=== PATIENT | female | born 1990 | race Caucasian/White ===

== ENCOUNTER 2019-07-29 16:34 | Inpatient (IN) | payer MEDICAID ==
[2019-07-29] MEDS ORDERED: Sodium Chloride 0.9% 10 ML Syringe FLUSH PRN ×2 (16:48→17:38)
[2019-07-29] MEDS ORDERED: cefOXitin 2 GM in Sodium Chloride 0.9% 50 ML IV ONE (17:38)
[2019-07-29] MEDS ORDERED: Lanolin 100% Cream 40 GM Tube TOP PRN (18:01)
[2019-07-29] MEDS ORDERED: Benzocaine 20% Top Spray 56 GM Bottle TOP PRN (18:01)
[2019-07-29] MEDS ORDERED: Ibuprofen 200 MG Tab, 24 Tab Bulk Bottle PO PRN (18:01)
[2019-07-29] MEDS ORDERED: Acetaminophen 325 MG Tab, 50 Tab Bulk Bottle PO PRN (18:01)
[2019-07-29] MEDS ORDERED: Witch Hazel Medicated Pads 100/Jar TOP ONE (18:01)
[2019-07-29] MEDS ORDERED: Witch Hazel Medicated Pads 100/Jar TOP PRN (18:01)
[2019-07-29] MEDS ORDERED: Benzocaine 20% Top Spray 56 GM Bottle TOP ONE (18:01)
--- NOTE | 2019-07-29 18:18 | PCM.LDHP ---
L&D History of Present Illness - General Admit Problem/Dx: Patient Status Order with Admit Dx/Problem 07/29/19 16:48 Patient Status [ADT] Routine 07/29/19 18:01 Patient Status [ADT] Routine Admission Diagnosis/Problem Admission Diagnosis/Problem Vaginal delivery - Related Data Allergies/Adverse Reactions: Allergies Allergy/AdvReac Type Severity Reaction Status Date / Time No Known Allergies Allergy Verified 10/07/13 05:37 Past Medical History HEENT History: Reports: None Cardiovascular History: Reports: None Respiratory History: Reports: None Gastrointestinal History: Reports: None Genitourinary History: Reports: None [employer] COOK History: Reports: None Musculoskeletal History: Reports: None Neurological History: Reports: None Psychiatric History: Reports: None Endocrine/Metabolic History: Reports: None Hematologic History: Reports: Anemia Immunologic History: Reports: None Oncologic (Cancer) History: Reports: None Dermatologic History: Reports: None - Infectious Disease History Infectious Disease History: Reports: None - Past Surgical History Head Surgeries/Procedures: Reports: None HEENT Surgical History: Reports: None Cardiovascular Surgical History: Reports: None Respiratory Surgical History: Reports: None GI Surgical History: Reports: None Female Surgical History: Reports: None Endocrine Surgical History: Reports: None Neurological Surgical History: Reports: None Musculoskeletal Surgical History: Reports: None Oncologic Surgical History: Reports: None Dermatological Surgical History: Reports: None Social & Family History - Tobacco Use Smoking Status *Q: Current Every Day Smoker Years of Tobacco use: 10 Packs/Tins Daily: 0.5 - Caffeine Use Caffeine Use: Reports: Coffee, Soda, Tea - Recreational Drug Use Recreational Drug Use: No L&D Exam - Vital Signs Weight: 58.967 kg - Patient Data Lab Results Last 24 hrs: Laboratory Results - last 24 hr 07/29/19 Range/Units 16:48 WBC 22.3 H (4.5-11.0) K/uL RBC 3.68 (3.30-5.50) M/uL Hgb 10.7 L D (12.0-15.0) g/dL Hct 32.2 L (36.0-48.0) % MCV 88 (80-98) fL MCH 29 (27-31) pg MCHC 33 (32-36) % Plt Count 258 (150-400) K/uL Neut % (Auto) 89 H (36-66) % Lymph % (Auto) 6 L (24-44) % [place] % (Auto) 5 (2-6) % Eos % (Auto) 0 L (2-4) % Baso % (Auto) 0 (0-1) % Result Diagrams: 07/29/19 16:48 Orders Last 24hrs: Active Orders 24 hr Category Date Time Status Patient Status [ADT] Routine ADT 07/29/19 16:48 Active Patient Status [ADT] Routine ADT 07/29/19 18:01 Active Heart Tones [RC] PER UNIT ROUTINE Care 07/29/19 16:48 Active Notify Provider Vital Signs [RC] PRN Care 07/29/19 16:48 Active Notify Provider [RC] PRN Care 07/29/19 16:48 Active VTE/DVT Education [RC] Click to Edit Care 07/29/19 18:02 Active Vital Signs [RC] PER UNIT ROUTINE Care 07/29/19 16:48 Active Vital Signs [RC] PFP Care 07/29/19 18:01 Active CBC WITH AUTO DIFF [HEME] Routine Lab 07/30/19 06:00 Ordered DRUG SCREEN, URINE [URCHEM] Urgent Lab 07/29/19 16:48 Ordered UA W/MICROSCOPIC [URIN] Urgent Lab 07/29/19 16:48 Ordered Acetaminophen [Tylenol Bulk Bottle] Med 07/29/19 18:01 Active See Dose Instructions PO Q4H PRN Benzocaine [Htlr-V-Nswwfhx 20% [place]] Med 07/29/19 18:01 Active 0 gm TOP Q4H PRN Ibuprofen [Motrin Bulk Bottle] Med 07/29/19 18:01 Active 600 mg PO Q6H PRN Lanolin [Lansinoh HPA] Med 07/29/19 18:01 Active 0 gm TOP ASDIRECTED PRN Oxytocin/Normal Saline [Pitocin in NS 20 Units/1,000 ML Med 07/29/19 18:06 Active ] 20 unit in 1,000 ml IV ONETIME Sodium Chloride 0.9% [Saline Flush] Med 07/29/19 16:48 Active 10 ml FLUSH ASDIRECTED PRN Sodium Chloride 0.9% [Saline Flush] Med 07/29/19 17:38 Active 10 ml FLUSH ASDIRECTED PRN Witch Zabrina [Tucks] Med 07/29/19 18:01 Active 1 pad TOP ASDIRECTED PRN Assess Lochia [WOMSER] Per Unit Routine Oth 07/29/19 18:01 Ordered Assess Uterine Involution [WOMSER] Per Unit Routine Ot 07/29/19 18:01 Ordered DVT/VTE Prophylaxis Reflex [OM.PC] Routine Ot 07/29/19 18:01 Ordered Ice Therapy [OM.PC] Per Unit Routine Ot 07/29/19 18:02 Ordered Perineal Care [OM.PC] Per Unit Routine Ot 07/29/19 18:02 Ordered Saline Lock Insert [OM.PC] Routine Ot 07/29/19 16:48 Ordered Saline Lock Insert [OM.PC] Routine Ot 07/29/19 17:38 Ordered Sitz Bath [OM.PC] Per Unit Routine Ot 07/29/19 18:02 Ordered Resuscitation Status Routine Resus Stat 07/29/19 16:48 Ordered Medication Orders Acetaminophen (Tylenol Bulk Bottle) 0 mg PO Q4H PRN PRN Reason: Pain Benzocaine (Rpge-K-Jgozvbc 20% [place]) 0 gm TOP Q4H PRN PRN Reason: Pain Emollient Ointment (Lansinoh Hpa) 0 gm TOP ASDIRECTED PRN PRN Reason: Pain Oxytocin/Sodium Chloride (Pitocin In Ns 20 Units/1,000 Ml) 20 unit in 1,000 mls @ 2,997 mls/hr IV ONETIME ONE; Protocol Stop: 07/29/19 18:26 Ibuprofen (Motrin Bulk Bottle) 600 mg PO Q6H PRN PRN Reason: Pain Sodium Chloride (Saline Flush) 10 ml FLUSH ASDIRECTED PRN PRN Reason: Keep Vein Open Sodium Chloride (Saline Flush) 10 ml FLUSH ASDIRECTED PRN PRN Reason: Keep Vein Open Witch Zabrina (Tucks) 1 pad TOP ASDIRECTED PRN PRN Reason: Pain
--- NOTE | 2019-07-29 18:45 | PCM.LDHP ---
L&D History of Present Illness - General Date of Service: 07/29/19 Admit Problem/Dx: Patient Status Order with Admit Dx/Problem 07/29/19 16:48 Patient Status [ADT] Routine 07/29/19 18:01 Patient Status [ADT] Routine Admission Diagnosis/Problem Admission Diagnosis/Problem Vaginal delivery - Related Data Allergies/Adverse Reactions: Allergies Allergy/AdvReac Type Severity Reaction Status Date / Time No Known Allergies Allergy Verified 10/07/13 05:37 Past Medical History HEENT History: Reports: None Cardiovascular History: Reports: None Respiratory History: Reports: None Gastrointestinal History: Reports: None Genitourinary History: Reports: None 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 Musculoskeletal History: Reports: None Neurological History: Reports: None Psychiatric History: Reports: None Endocrine/Metabolic History: Reports: None Hematologic History: Reports: Anemia Immunologic History: Reports: None Oncologic (Cancer) History: Reports: None Dermatologic History: Reports: None - Infectious Disease History Infectious Disease History: Reports: None - Past Surgical History Head Surgeries/Procedures: Reports: None HEENT Surgical History: Reports: None Cardiovascular Surgical History: Reports: None Respiratory Surgical History: Reports: None GI Surgical History: Reports: None Female Surgical History: Reports: None Endocrine Surgical History: Reports: None Neurological Surgical History: Reports: None Musculoskeletal Surgical History: Reports: None Oncologic Surgical History: Reports: None Dermatological Surgical History: Reports: None Social & Family History - Tobacco Use Smoking Status *Q: Current Every Day Smoker Years of Tobacco use: 10 Packs/Tins Daily: 0.5 - Caffeine Use Caffeine Use: Reports: Coffee, Soda, Tea - Recreational Drug Use Recreational Drug Use: No H&P Review of Systems - Review of Systems: Review Of Systems: See Below General: Reports: No Symptoms HEENT: Reports: No Symptoms Pulmonary: Reports: No Symptoms Cardiovascular: Reports: No Symptoms Gastrointestinal: Reports: No Symptoms Genitourinary: Reports: No Symptoms Musculoskeletal: Reports: No Symptoms Skin: Reports: No Symptoms Psychiatric: Reports: No Symptoms Neurological: Reports: No Symptoms Hematologic/Lymphatic: Reports: No Symptoms Immunologic: Reports: No Symptoms L&D Exam - Exam Exam: See Below - Vital Signs Weight: 58.967 kg - Exam General: Alert, Oriented HEENT: PERRLA, Conjunctiva Clear, EACs Clear, EOMI, Hearing Intact, Mucosa Moist & [place], Nares Patent, Normal Nasal Septum, Posterior Pharynx Clear, TMs Clear Neck: Supple, Trachea Midline Lungs: Clear to Auscultation, Normal Respiratory Effort Cardiovascular: Regular Rate, Regular Rhythm GI/Abdominal Exam: Normal Bowel Sounds, Soft, Non-Tender, No Organomegaly, No Distention, No Abnormal Bruit, No Mass, Pelvis Stable Rectal Exam: Normal Exam, Normal Rectal Tone Genitourinary: Normal external exam, Normal bimanual exam, Normal speculum exam Back Exam: Normal Inspection, Full Range of Motion Extremities: Normal Inspection, Normal Range of Motion, Non-Tender, No Pedal Edema, Normal Capillary Refill Skin: Warm, Dry, Intact Neurological: Cranial Nerves Intact, Reflexes Equal Bilateral Psychiatric: Alert, Normal Affect, Normal Mood - Patient Data Lab Results Last 24 hrs: Laboratory Results - last 24 hr 07/29/19 Range/Units 16:48 WBC 22.3 H (4.5-11.0) K/uL RBC 3.68 (3.30-5.50) M/uL Hgb 10.7 L D (12.0-15.0) g/dL Hct 32.2 L (36.0-48.0) % MCV 88 (80-98) fL MCH 29 (27-31) pg MCHC 33 (32-36) % Plt Count 258 (150-400) K/uL Neut % (Auto) 89 H (36-66) % Lymph % (Auto) 6 L (24-44) % [place] % (Auto) 5 (2-6) % Eos % (Auto) 0 L (2-4) % Baso % (Auto) 0 (0-1) % Result Diagrams: 07/29/19 16:48 - Problem List (1) Vaginal delivery SNOMED Code(s): 511039668 ICD Code: O80 - ENCOUNTER FOR FULL-TERM UNCOMPLICATED DELIVERY Status: Acute Current Visit: Yes (2) Precipitous delivery SNOMED Code(s): 686380160, 702797793 ICD Code: O62.3 - PRECIPITATE LABOR Status: Acute Current Visit: Yes (3) Encounter for care after unplanned out of hospital delivery SNOMED Code(s): 124066907, 925254916, 484651849 ICD Code: Z39.2 - ENCOUNTER FOR ROUTINE FOLLOW-UP Status: Acute Current Visit: Yes (4) Elevated WBC count SNOMED Code(s): 568200019, 986425257 ICD Code: D72.829 - ELEVATED WHITE BLOOD CELL COUNT, UNSPECIFIED Status: Acute Current Visit: Yes (5) No care in current SNOMED Code(s): 736080074 ICD Code: O09.30 - SUPRVSN OF PREG W INSUFFICIENT ANTENAT CARE, UNSP TRIMESTER Status: Acute Current Visit: Yes (6) Social problem in school SNOMED Code(s): 126415858 ICD Code: Z65.8 - OTH PROBLEMS RELATED TO PSYCHOSOCIAL CIRCUMSTANCES Status : Acute Current Visit: Yes (7) Anemia SNOMED Code(s): 957122648 ICD Code: D64.9 - ANEMIA, UNSPECIFIED Status: Acute Current Visit: Yes Qualifiers: Anemia type: unspecified type Qualified Code(s): D64.9 - Anemia, unspecified Problem List Initiated/Reviewed/Updated: Yes Orders Last 24hrs: Active Orders 24 hr Category Date Time Status Patient Status [ADT] Routine ADT 07/29/19 16:48 Active Patient Status [ADT] Routine ADT 07/29/19 18:01 Active Heart Tones [RC] PER UNIT ROUTINE Care 07/29/19 16:48 Active Notify Provider Vital Signs [RC] PRN Care 07/29/19 16:48 Active Notify Provider [RC] PRN Care 07/29/19 16:48 Active VTE/DVT Education [RC] Click to Edit Care 07/29/19 18:02 Active Vital Signs [RC] PER UNIT ROUTINE Care 07/29/19 16:48 Active Vital Signs [RC] PFP Care 07/29/19 18:01 Active CBC WITH AUTO DIFF [HEME] Routine Lab 07/30/19 06:00 Ordered DRUG SCREEN, URINE [URCHEM] Urgent Lab 07/29/19 16:48 Ordered UA W/MICROSCOPIC [URIN] Urgent Lab 07/29/19 16:48 Ordered Acetaminophen [Tylenol Bulk Bottle] Med 07/29/19 18:01 Active See Dose Instructions PO Q4H PRN Benzocaine [Odxl-V-Eosmngw 20% [place]] Med 07/29/19 18:01 Active 0 gm TOP Q4H PRN Ibuprofen [Motrin Bulk Bottle] Med 07/29/19 18:01 Active 600 mg PO Q6H PRN Lanolin [Lansinoh HPA] Med 07/29/19 18:01 Active 0 gm TOP ASDIRECTED PRN Sodium Chloride 0.9% [Saline Flush] Med 07/29/19 16:48 Active 10 ml FLUSH ASDIRECTED PRN Sodium Chloride 0.9% [Saline Flush] Med 07/29/19 17:38 Active 10 ml FLUSH ASDIRECTED PRN Witch Zabrina [Tucks] Med 07/29/19 18:01 Active 1 pad TOP ASDIRECTED PRN Assess Lochia [WOMSER] Per Unit Routine Oth 07/29/19 18:01 Ordered Assess Uterine Involution [WOMSER] Per Unit Routine Oth 07/29/19 18:01 Ordered DVT/VTE Prophylaxis Reflex [OM.PC] Routine Ot 07/29/19 18:01 Ordered Ice Therapy [OM.PC] Per Unit Routine Ot 07/29/19 18:02 Ordered Perineal Care [OM.PC] Per Unit Routine Ot 07/29/19 18:02 Ordered Saline Lock Insert [OM.PC] Routine Ot 07/29/19 16:48 Ordered Saline Lock Insert [OM.PC] Routine Ot 07/29/19 17:38 Ordered Sitz Bath [OM.PC] Per Unit Routine Ot 07/29/19 18:02 Ordered Resuscitation Status Routine Resus Stat 07/29/19 16:48 Ordered Medication Orders Acetaminophen (Tylenol Bulk Bottle) 0 mg PO Q4H PRN PRN Reason: Pain Benzocaine (Rpfy-K-Xcnmyaw 20% [place]) 0 gm TOP Q4H PRN PRN Reason: Pain Emollient Ointment (Lansinoh Hpa) 0 gm TOP ASDIRECTED PRN PRN Reason: Pain Ibuprofen (Motrin Bulk Bottle) 600 mg PO Q6H PRN PRN Reason: Pain Sodium Chloride (Saline Flush) 10 ml FLUSH ASDIRECTED PRN PRN Reason: Keep Vein Open Sodium Chloride (Saline Flush) 10 ml FLUSH ASDIRECTED PRN PRN Reason: Keep Vein Open Witch Zabrina (Tucks) 1 pad TOP ASDIRECTED PRN PRN Reason: Pain Assessment/Plan Comment:: 07/29/2019 28 yo female G2 now P2 delivered at home see labor delivery note-
--- NOTE | 2019-07-29 18:53 | PCM.DEL ---
L & D Note - General Info Date of Service: 07/29/19 Mother's Due Date: 08/03/19 (based on LMP) - Delivery Note Labor: Spontaneous Delivery Method: Spontaneous Vaginal Delivery-Single (delivered at home) Presentation: Vertex Nuchal Cord: None (patient states none) Amniotic Fluid Description: states no fluid seen Laceration: Labial (small not repaired, not bleeding) Placenta: Intact, Spontaneous Cord: 3 Vessels Estimated Blood Loss: 500 (based on what is in bag and pad) Resuscitation Needed: No : [place] Used (mom covered with a towel right away) Second Stage Interventions: Reports: Other (see below) (patient delivered at home ) Delivery Comments (Free Text/Narrative):: 07/29/2019 28 yo delivered a viable female infant at approximated 39 2/7 per LMP of patent precipitously in vertex position at home. Patient states her contractions started mildly at 1530 and by 1545 she had delivered baby on her own while sitting on the toilet in her bathroom, she states there was no fluid with baby, baby was pink in color, and baby cried immediately upon delivery. She states she lifted baby up and patients mother than called 911 and the louver mortiser operator on 911 told them to tie the cord, which they did with a piece of yarn. Then mother states she wrapped baby in a towel and waited for ambulance crew to arrive, Once they arrived she states that her placenta then fell out with some bleeding but that this is all on pad and was a lot in toilet. She states then the ambulance worker cut the cord and clamped it. She was then transported to the hospital. Placenta was intact in bag with three vessel cord, with small amount of clots, and moderate bleeding on pad noted. She had a small left labial tear, not bleeding, not repaired. No other lacerations noted of vagina, rectum, or cervix. [id number] based on amount on chux, amount in baggy, and amount on towel. Estimated Patient states on admission that she had been receiving care in [place]. After admission completed, [facility] called and states they have no records of patient, EPIC checked and no record of care, when asked patient again she revealed that she has gotten no care during this . currently skin to skin with mother of in labor and delivery room. - General Info Date of Service: 07/29/19 Functional Status: Reports: Pain Controlled - Review of Systems General: Reports: No Symptoms HEENT: Reports: No Symptoms Pulmonary: Reports: No Symptoms Cardiovascular: Reports: No Symptoms Gastrointestinal: Reports: No Symptoms Genitourinary: Reports: No Symptoms Musculoskeletal: Reports: No Symptoms Skin: Reports: No Symptoms Neurological: Reports: No Symptoms Psychiatric: Reports: No Symptoms - Patient Data Weight - Most Recent: 58.967 kg Lab Results Last 24 Hours: Laboratory Results - last 24 hr 07/29/19 Range/Units 16:48 WBC 22.3 H (4.5-11.0) K/uL RBC 3.68 (3.30-5.50) M/uL Hgb 10.7 L D (12.0-15.0) g/dL Hct 32.2 L (36.0-48.0) % MCV 88 (80-98) fL MCH 29 (27-31) pg MCHC 33 (32-36) % Plt Count 258 (150-400) K/uL Neut % (Auto) 89 H (36-66) % Lymph % (Auto) 6 L (24-44) % [place] % (Auto) 5 (2-6) % Eos % (Auto) 0 L (2-4) % Baso % (Auto) 0 (0-1) % Med Orders - Current: Current Medications Acetaminophen (Tylenol Bulk Bottle) 0 mg PO Q4H PRN PRN Reason: Pain Benzocaine (Xzgx-C-Lhukehs 20% [place]) 0 gm TOP Q4H PRN PRN Reason: Pain Emollient Ointment (Lansinoh Hpa) 0 gm TOP ASDIRECTED PRN PRN Reason: Pain Ibuprofen (Motrin Bulk Bottle) 600 mg PO Q6H PRN PRN Reason: Pain Sodium Chloride (Saline Flush) 10 ml FLUSH ASDIRECTED PRN PRN Reason: Keep Vein Open Sodium Chloride (Saline Flush) 10 ml FLUSH ASDIRECTED PRN PRN Reason: Keep Vein Open Witch Zabrina (Tucks) 1 pad TOP ASDIRECTED PRN PRN Reason: Pain Discontinued Medications Benzocaine (Sbcs-E-Xidvnaf 20% [place]) 0 gm TOP ONETIME ONE Stop: 07/29/19 18:02 Cefoxitin Sodium 2 gm/ Sodium (Chloride) 50 mls @ 100 mls/hr IV ONETIME ONE Stop: 07/29/19 18:07 Last Admin: 07/29/19 18:33 Dose: 100 mls/hr Oxytocin/Sodium Chloride (Pitocin In Ns 20 Units/1,000 Ml) 20 unit in 1,000 mls @ 2,997 mls/hr IV ONETIME ONE; Protocol Stop: 07/29/19 18:26 Dre Greber (Steve) 1 pad TOP ONETIME ONE Stop: 07/29/19 18:02 - Exam General: Alert, Oriented, Cooperative HEENT: Pupils Equal, Pupils Reactive, EOMI, Mucous Membr. Moist/[place] Neck: Supple Lungs: Clear to Auscultation, Normal Respiratory Effort Cardiovascular: Regular Rate, Regular Rhythm GI/Abdominal Exam: Normal Bowel Sounds, Soft, Non-Tender, No Organomegaly, No Distention, No Abnormal Bruit, No Mass, Pelvis Stable (Female) Exam: Normal External Exam, Normal Speculum Exam, Normal Bimanual Exam, Enlarged Uterus, Vaginal Bleeding, Vaginal Tears (small right labial, no bleeding and not repaired) Back Exam: Normal Inspection, Full Range of Motion Extremities: Normal Inspection, Normal Range of Motion, Non-Tender, No Pedal Edema, Normal Capillary Refill Skin: Warm, Dry, Intact Neurological: No New Focal Deficit Psy/Mental Status: Alert, Normal Affect, Normal Mood - Problem List & Annotations (1) Vaginal delivery SNOMED Code(s): 906130613 Code(s): O80 - ENCOUNTER FOR FULL-TERM UNCOMPLICATED DELIVERY Status: Acute Current Visit: Yes (2) Precipitous delivery SNOMED Code(s): 869627736, 493950935 Code(s): O62.3 - PRECIPITATE LABOR Status: Acute Current Visit: Yes (3) Encounter for care after unplanned out of hospital delivery SNOMED Code(s): 728876404, 301494941, 729120261 Code(s): Z39.2 - ENCOUNTER FOR ROUTINE FOLLOW-UP Status: Acute Current Visit: Yes (4) Elevated WBC count SNOMED Code(s): 560566047, 882657507 Code(s): D72.829 - ELEVATED WHITE BLOOD CELL COUNT, UNSPECIFIED Status: Acute Current Visit: Yes (5) No care in current SNOMED Code(s): 068245408 Code(s): O09.30 - SUPRVSN OF PREG W INSUFFICIENT ANTENAT CARE, UNSP TRIMESTER Status: Acute Current Visit: Yes (6) Social problem in school SNOMED Code(s): 688191036 Code(s): Z65.8 - OTH PROBLEMS RELATED TO PSYCHOSOCIAL CIRCUMSTANCES Status : Acute Current Visit: Yes (7) Anemia SNOMED Code(s): 100727567 Code(s): D64.9 - ANEMIA, UNSPECIFIED Status: Acute Current Visit: Yes Qualifiers: Anemia type: unspecified type Qualified Code(s): D64.9 - Anemia, unspecified (8) Prolonged rupture of membranes, greater than 24 hours, delivered SNOMED Code(s): 22222322, 695594275 Code(s): O42.10 - JONA ROM, ONSET LABOR > 24 HR FOL RUPT, UNSP WEEKS OF GEST Status: Acute Current Visit: Yes - Problem List Review Problem List Initiated/Reviewed/Updated: Yes - My Orders Last 24 Hours: My Active Orders 07/29/19 16:48 Patient Status [ADT] Routine Heart Tones [RC] PER UNIT ROUTINE Notify Provider Vital Signs [RC] PRN Notify Provider [RC] PRN Vital Signs [RC] PER UNIT ROUTINE DRUG SCREEN, URINE [URCHEM] Urgent UA W/MICROSCOPIC [URIN] Urgent Sodium Chloride 0.9% [Saline Flush] 10 ml FLUSH ASDIRECTED PRN Saline Lock Insert [OM.PC] Routine Resuscitation Status Routine 07/29/19 17:38 Sodium Chloride 0.9% [Saline Flush] 10 ml FLUSH ASDIRECTED PRN Saline Lock Insert [OM.PC] Routine 07/29/19 18:01 Patient Status [ADT] Routine Vital Signs [RC] PFP Acetaminophen [Tylenol Bulk Bottle] See Dose Instructions PO Q4H PRN Benzocaine [Roqr-Z-Xmpjqkq 20% [place]] 0 gm TOP Q4H PRN Ibuprofen [Motrin Bulk Bottle] 600 mg PO Q6H PRN Lanolin [Lansinoh HPA] 0 gm TOP ASDIRECTED PRN Witch Zabrina [Tucks] 1 pad TOP ASDIRECTED PRN Assess Lochia [WOMSER] Per Unit Routine Assess Uterine Involution [WOMSER] Per Unit Routine DVT/VTE Prophylaxis Reflex [OM.PC] Routine 07/29/19 18:02 VTE/DVT Education [RC] Click to Edit Ice Therapy [OM.PC] Per Unit Routine Perineal Care [OM.PC] Per Unit Routine Sitz Bath [OM.PC] Per Unit Routine 07/30/19 06:00 CBC WITH AUTO DIFF [HEME] Routine - Assessment Assessment:: 07/29/2019 28 yo G2 now P2 delivered precipitously at home in bathroom with no care Approximate gestation of 39 2/7 based on patient stated LMP Prolonged or unknown rupture of membranes Social problems Labs-unknown, CBC-wbc-22.3, hgb-10.7 - Plan Plan:: 07/29/2019 28 yo female G2 now P2 delivered at home see labor delivery note- Plan- Routine cares Encourage and support Will draw all labs IV antibiotics for suspected prolonged SROM and elevated WBC CBC again tomorrow am Pitocin IV per protocol for bleeding
--- NOTE | 2019-07-30 08:34 | PCM.PNPP ---
- General Info Date of Service: 07/30/19 Functional Status: Reports: Pain Controlled - Review of Systems General: Reports: No Symptoms HEENT: Reports: No Symptoms Pulmonary: Reports: No Symptoms Cardiovascular: Reports: No Symptoms Gastrointestinal: Reports: No Symptoms Genitourinary: Reports: No Symptoms Musculoskeletal: Reports: No Symptoms Skin: Reports: No Symptoms Neurological: Reports: No Symptoms Psychiatric: Reports: No Symptoms - General Info Date of Service: 07/30/19 - Patient Data Vital Signs - Most Recent: Last Vital Signs Temp 35.7 C 07/30/19 07:03 Pulse 86 07/30/19 07:03 Resp 16 07/30/19 07:03 BP 116/73 07/30/19 07:03 Pulse Ox 98 07/30/19 07:03 Weight - Most Recent: 58.967 kg I&O - Last 24 Hours: Intake & Output 07/29/19 07/30/19 07/30/19 22:59 06:59 14:59 Intake Total 800 800 Balance 800 800 Lab Results - Last 24 Hours: Laboratory Results - last 24 hr 07/29/19 07/29/19 07/29/19 Range/Units 16:48 16:48 16:48 WBC 22.3 H (4.5-11.0) K/uL RBC 3.68 (3.30-5.50) M/uL Hgb 10.7 L D (12.0-15.0) g/dL Hct 32.2 L (36.0-48.0) % MCV 88 (80-98) fL MCH 29 (27-31) pg MCHC 33 (32-36) % Plt Count 258 (150-400) K/uL Neut % (Auto) 89 H (36-66) % Lymph % (Auto) 6 L (24-44) % [place] % (Auto) 5 (2-6) % Eos % (Auto) 0 L (2-4) % Baso % (Auto) 0 (0-1) % Urine Color Brown A (YELLOW) Urine Appearance Cloudy A (CLEAR) Urine pH 6.0 (5.0-8.0) Ur Specific [place] 1.015 (1.008-1.030) Urine Protein 100 H (NEGATIVE) mg/dL Urine Glucose (UA) Negative (NEGATIVE) mg/dL Urine Ketones Negative (NEGATIVE) mg/dL Urine Occult Blood Large H (NEGATIVE) Urine Nitrite Positive H (NEGATIVE) Urine Bilirubin Negative (NEGATIVE) Urine Urobilinogen 0.2 (0.2-1.0) EU/dL Ur Leukocyte Esterase Large H (NEGATIVE) Urine RBC Packed H (0-5) Urine WBC Packed H (0-5) Ur Epithelial Cells Few Amorphous Sediment Not seen Urine Bacteria Moderate Urine Mucus Not seen Urine Opiates Screen Negative (NEGATIVE) Ur Oxycodone Screen Negative (NEGATIVE) Urine Methadone Screen Negative (NEGATIVE) Ur Propoxyphene Screen Negative (NEGATIVE) Ur Barbiturates Screen Negative (NEGATIVE) Ur Tricyclics Screen Negative (NEGATIVE) Ur Phencyclidine Scrn Negative (NEGATIVE) Ur Amphetamine Screen Presumptive positive H (NEGATIVE) U Methamphetamines Scrn Presumptive positive H (NEGATIVE) Urine MDMA Screen Negative (NEGATIVE) U Benzodiazepines Scrn Negative (NEGATIVE) U Cocaine Metab Screen Negative (NEGATIVE) U Marijuana (THC) Screen Negative (NEGATIVE) HIV-1 Ab Rapid Screen (NON-REACT.) Blood Type Gel Antibody Screen 07/29/19 07/29/19 07/30/19 Range/Units 19:39 19:39 05:00 WBC 13.4 H (4.5-11.0) K/uL RBC 2.67 L (3.30-5.50) M/uL Hgb 7.5 L D (12.0-15.0) g/dL Hct 23.4 L (36.0-48.0) % MCV 88 (80-98) fL MCH 28 (27-31) pg MCHC 32 (32-36) % Plt Count 206 (150-400) K/uL Neut % (Auto) 71 H (36-66) % Lymph % (Auto) 21 L (24-44) % [place] % (Auto) 7 H (2-6) % Eos % (Auto) 2 (2-4) % Baso % (Auto) 0 (0-1) % Urine Color (YELLOW) Urine Appearance (CLEAR) Urine pH (5.0-8.0) Ur Specific [place] (1.008-1.030) Urine Protein (NEGATIVE) mg/dL Urine Glucose (UA) (NEGATIVE) mg/dL Urine Ketones (NEGATIVE) mg/dL Urine Occult Blood (NEGATIVE) Urine Nitrite (NEGATIVE) Urine Bilirubin (NEGATIVE) Urine Urobilinogen (0.2-1.0) EU/dL Ur Leukocyte Esterase (NEGATIVE) Urine RBC (0-5) Urine WBC (0-5) Ur Epithelial Cells Amorphous Sediment Urine Bacteria Urine Mucus Urine Opiates Screen (NEGATIVE) Ur Oxycodone Screen (NEGATIVE) Urine Methadone Screen (NEGATIVE) Ur Propoxyphene Screen (NEGATIVE) Ur Barbiturates Screen (NEGATIVE) Ur Tricyclics Screen (NEGATIVE) Ur Phencyclidine Scrn (NEGATIVE) Ur Amphetamine Screen (NEGATIVE) U Methamphetamines Scrn (NEGATIVE) Urine MDMA Screen (NEGATIVE) U Benzodiazepines Scrn (NEGATIVE) U Cocaine Metab Screen (NEGATIVE) U Marijuana (THC) Screen (NEGATIVE) HIV-1 Ab Rapid Screen Non-reactive (NON-REACT.) Blood Type O POSITIVE Gel Antibody Screen Negative Med Orders - Current: Current Medications Acetaminophen (Tylenol Bulk Bottle) 0 mg PO Q4H PRN PRN Reason: Pain Last Admin: 07/29/19 19:09 Dose: 1 bottle Benzocaine (Rgyt-E-Zbjutnj 20% [place]) 0 gm TOP Q4H PRN PRN Reason: Pain Emollient Ointment (Lansinoh Hpa) 0 gm TOP ASDIRECTED PRN PRN Reason: Pain Ibuprofen (Motrin Bulk Bottle) 600 mg PO Q6H PRN PRN Reason: Pain Last Admin: 07/29/19 19:09 Dose: 1 bottle Sodium Chloride (Saline Flush) 10 ml FLUSH ASDIRECTED PRN PRN Reason: Keep Vein Open Last Admin: 07/29/19 21:56 Dose: 10 ml Witch Zarbina (Tucks) 1 pad TOP ASDIRECTED PRN PRN Reason: Pain Discontinued Medications Benzocaine (Jjub-L-Imnfgga 20% [place]) 0 gm TOP ONETIME ONE Stop: 07/29/19 18:02 Last Admin: 07/30/19 05:21 Dose: Not Given Cefoxitin Sodium 2 gm/ Sodium (Chloride) 50 mls @ 100 mls/hr IV ONETIME ONE Stop: 07/29/19 18:07 Last Admin: 07/29/19 18:33 Dose: 100 mls/hr Oxytocin/Sodium Chloride (Pitocin In Ns 20 Units/1,000 Ml) 20 unit in 1,000 mls @ 2,997 mls/hr IV ONETIME ONE; Protocol Stop: 07/29/19 18:26 Last Admin: 07/29/19 19:14 Dose: 999 munits/min, 2,997 mls/hr Dre Gerber (Steve) 1 pad TOP ONETIME ONE Stop: 07/29/19 18:02 Last Admin: 07/30/19 05:22 Dose: Not Given - Infant Interaction Disposition, : [place] at Bedside Interaction: Holding Infant Infant Feeding: Breastfed ; Nursed Well - Recovery Exam Fundal Tone: Firm Fundal Level: 2 Fingerbreadths Below Umbilicus Fundal Placement: Midline Lochia Amount: Scant, Small Lochia Color: Rubra/Red Perineum Description: Intact, Minimal Bruising/Swelling Episiotomy/Laceration: None Bladder Status: Voiding - Exam General: Alert, Oriented HEENT: Pupils Equal Neck: Supple Lungs: Clear to Auscultation, Normal Respiratory Effort Cardiovascular: Regular Rate, Regular Rhythm GI/Abdominal Exam: Normal Bowel Sounds, Soft, Non-Tender, No Organomegaly, No Distention, No Abnormal Bruit, No Mass, Pelvis Stable Extremities: Normal Inspection, Normal Range of Motion, Non-Tender, No Pedal Edema, Normal Capillary Refill Skin: Warm, Dry, Intact Neurological: No New Focal Deficit Psy/Mental Status: Alert, Normal Affect, Normal Mood - Problem List & Annotations (1) Vaginal delivery SNOMED Code(s): 183094184 Code(s): O80 - ENCOUNTER FOR FULL-TERM UNCOMPLICATED DELIVERY Status: Acute Current Visit: Yes (2) Precipitous delivery SNOMED Code(s): 507705454, 444079688 Code(s): O62.3 - PRECIPITATE LABOR Status: Acute Current Visit: Yes (3) Encounter for care after unplanned out of hospital delivery SNOMED Code(s): 340851398, 071259933, 851480334 Code(s): Z39.2 - ENCOUNTER FOR ROUTINE FOLLOW-UP Status: Acute Current Visit: Yes (4) Elevated WBC count SNOMED Code(s): 179247803, 429900473 Code(s): D72.829 - ELEVATED WHITE BLOOD CELL COUNT, UNSPECIFIED Status: Acute Current Visit: Yes (5) No care in current SNOMED Code(s): 392453734 Code(s): O09.30 - SUPRVSN OF PREG W INSUFFICIENT ANTENAT CARE, UNSP TRIMESTER Status: Acute Current Visit: Yes (6) Social problem in school SNOMED Code(s): 156987232 Code(s): Z65.8 - OTH PROBLEMS RELATED TO PSYCHOSOCIAL CIRCUMSTANCES Status : Acute Current Visit: Yes (7) Anemia SNOMED Code(s): 885043618 Code(s): D64.9 - ANEMIA, UNSPECIFIED Status: Acute Current Visit: Yes Qualifiers: Anemia type: unspecified type Qualified Code(s): D64.9 - Anemia, unspecified (8) Prolonged rupture of membranes, greater than 24 hours, delivered SNOMED Code(s): 70162682, 815166324 Code(s): O42.10 - JONA ROM, ONSET LABOR > 24 HR FOL RUPT, UNSP WEEKS OF GEST Status: Acute Current Visit: Yes (9) UTI (urinary tract infection) during SNOMED Code(s): 789347036 Code(s): O23.40 - UNSP INFECTION OF URINARY TRACT IN , UNSP TRIMESTER Status: Acute Current Visit: Yes - Problem List Review Problem List Initiated/Reviewed/Updated: Yes - My Orders Last 24 Hours: My Active Orders 07/29/19 16:48 Patient Status [ADT] Routine Notify Provider Vital Signs [RC] PRN Saline Lock Insert [OM.PC] Routine Resuscitation Status Routine 07/29/19 17:38 Sodium Chloride 0.9% [Saline Flush] 10 ml FLUSH ASDIRECTED PRN Saline Lock Insert [OM.PC] Routine 07/29/19 18:00 HEPATITIS B SURF AB QUANT Routine RUBELLA ANTIBODIES, IGG Routine 07/29/19 18:01 Patient Status [ADT] Routine Vital Signs [RC] PFP Acetaminophen [Tylenol Bulk Bottle] See Dose Instructions PO Q4H PRN Benzocaine [Lygr-A-Qmgrkzd 20% [place]] 0 gm TOP Q4H PRN Ibuprofen [Motrin Bulk Bottle] 600 mg PO Q6H PRN Lanolin [Lansinoh HPA] 0 gm TOP ASDIRECTED PRN Witch Zabrina [Tucks] 1 pad TOP ASDIRECTED PRN Assess Lochia [WOMSER] Per Unit Routine Assess Uterine Involution [WOMSER] Per Unit Routine DVT/VTE Prophylaxis Reflex [OM.PC] Routine 07/29/19 18:02 VTE/DVT Education [RC] Click to Edit Ice Therapy [OM.PC] Per Unit Routine Perineal Care [OM.PC] Per Unit Routine Sitz Bath [OM.PC] Per Unit Routine 07/29/19 22:29 AMPHETAMINE SCREEN RFLX Routine METHAMPHETAMINE D/L ISOMERS Routine 07/30/19 05:00 RPR QN+TP ABS Routine - Assessment Assessment:: 07/29/2019 28 yo G2 now P2 delivered precipitously at home in bathroom with no care Approximate gestation of 39 2/7 based on patient stated LMP Prolonged or unknown rupture of membranes Social problems Labs-unknown, CBC-wbc-22.3, hgb-10.7 07/30/2019 Normal Female Day One UDS positive for amphetamines and methamphetamines, patient denies drug use No care well Fundus firm and bleeding decreasing Hgb-7.5 today, WBC-13.8 today Patient currently being cooperative, social service to come later today. - Plan Plan:: 07/29/2019 28 yo female G2 now P2 delivered at home see labor delivery note- Plan- Routine cares Encourage and support Will draw all labs IV antibiotics for suspected prolonged SROM and elevated WBC CBC again tomorrow am Pitocin IV per protocol for bleeding 07/30/2019 Continue routine cares Continue to Encourage and support IV antibiotics for suspected prolonged SROM and elevated WBC, leave SL in for now CBC tomorrow again to check hgb Will initiate Iron today Will initiate oral antibiotics for suspected UTI Social service to see today
[2019-07-30] MEDS: Amoxicillin 500 MG Cap PO SCH ×2 (09:44→17:57)
--- NOTE | 2019-07-30 17:05 | PCM.PNPP ---
- General Info Date of Service: 07/30/19 - Patient Data Vital Signs - Most Recent: Last Vital Signs Temp 36.1 C 07/30/19 15:18 Pulse 98 07/30/19 15:18 Resp 16 07/30/19 15:18 BP 109/80 07/30/19 15:18 Pulse Ox 99 07/30/19 15:18 Weight - Most Recent: 58.967 kg I&O - Last 24 Hours: Intake & Output 07/30/19 07/30/19 07/30/19 06:59 14:59 22:59 Intake Total 800 940 Balance 800 940 Lab Results - Last 24 Hours: Laboratory Results - last 24 hr 07/29/19 07/29/19 07/29/19 Range/Units 16:48 16:48 16:48 WBC 22.3 H (4.5-11.0) K/uL RBC 3.68 (3.30-5.50) M/uL Hgb 10.7 L D (12.0-15.0) g/dL Hct 32.2 L (36.0-48.0) % MCV 88 (80-98) fL MCH 29 (27-31) pg MCHC 33 (32-36) % Plt Count 258 (150-400) K/uL Neut % (Auto) 89 H (36-66) % Lymph % (Auto) 6 L (24-44) % [place] % (Auto) 5 (2-6) % Eos % (Auto) 0 L (2-4) % Baso % (Auto) 0 (0-1) % Urine Color Brown A (YELLOW) Urine Appearance Cloudy A (CLEAR) Urine pH 6.0 (5.0-8.0) Ur Specific [place] 1.015 (1.008-1.030) Urine Protein 100 H (NEGATIVE) mg/dL Urine Glucose (UA) Negative (NEGATIVE) mg/dL Urine Ketones Negative (NEGATIVE) mg/dL Urine Occult Blood Large H (NEGATIVE) Urine Nitrite Positive H (NEGATIVE) Urine Bilirubin Negative (NEGATIVE) Urine Urobilinogen 0.2 (0.2-1.0) EU/dL Ur Leukocyte Esterase Large H (NEGATIVE) Urine RBC Packed H (0-5) Urine WBC Packed H (0-5) Ur Epithelial Cells Few Amorphous Sediment Not seen Urine Bacteria Moderate Urine Mucus Not seen Urine Opiates Screen Negative (NEGATIVE) Ur Oxycodone Screen Negative (NEGATIVE) Urine Methadone Screen Negative (NEGATIVE) Ur Propoxyphene Screen Negative (NEGATIVE) Ur Barbiturates Screen Negative (NEGATIVE) Ur Tricyclics Screen Negative (NEGATIVE) Ur Phencyclidine Scrn Negative (NEGATIVE) Ur Amphetamine Screen Presumptive positive H (NEGATIVE) U Methamphetamines Scrn Presumptive positive H (NEGATIVE) Urine MDMA Screen Negative (NEGATIVE) U Benzodiazepines Scrn Negative (NEGATIVE) U Cocaine Metab Screen Negative (NEGATIVE) U Marijuana (THC) Screen Negative (NEGATIVE) HIV-1 Ab Rapid Screen (NON-REACT.) Blood Type Gel Antibody Screen 07/29/19 07/29/19 07/30/19 Range/Units 19:39 19:39 05:00 WBC 13.4 H (4.5-11.0) K/uL RBC 2.67 L (3.30-5.50) M/uL Hgb 7.5 L D (12.0-15.0) g/dL Hct 23.4 L (36.0-48.0) % MCV 88 (80-98) fL MCH 28 (27-31) pg MCHC 32 (32-36) % Plt Count 206 (150-400) K/uL Neut % (Auto) 71 H (36-66) % Lymph % (Auto) 21 L (24-44) % [place] % (Auto) 7 H (2-6) % Eos % (Auto) 2 (2-4) % Baso % (Auto) 0 (0-1) % Urine Color (YELLOW) Urine Appearance (CLEAR) Urine pH (5.0-8.0) Ur Specific [place] (1.008-1.030) Urine Protein (NEGATIVE) mg/dL Urine Glucose (UA) (NEGATIVE) mg/dL Urine Ketones (NEGATIVE) mg/dL Urine Occult Blood (NEGATIVE) Urine Nitrite (NEGATIVE) Urine Bilirubin (NEGATIVE) Urine Urobilinogen (0.2-1.0) EU/dL Ur Leukocyte Esterase (NEGATIVE) Urine RBC (0-5) Urine WBC (0-5) Ur Epithelial Cells Amorphous Sediment Urine Bacteria Urine Mucus Urine Opiates Screen (NEGATIVE) Ur Oxycodone Screen (NEGATIVE) Urine Methadone Screen (NEGATIVE) Ur Propoxyphene Screen (NEGATIVE) Ur Barbiturates Screen (NEGATIVE) Ur Tricyclics Screen (NEGATIVE) Ur Phencyclidine Scrn (NEGATIVE) Ur Amphetamine Screen (NEGATIVE) U Methamphetamines Scrn (NEGATIVE) Urine MDMA Screen (NEGATIVE) U Benzodiazepines Scrn (NEGATIVE) U Cocaine Metab Screen (NEGATIVE) U Marijuana (THC) Screen (NEGATIVE) HIV-1 Ab Rapid Screen Non-reactive (NON-REACT.) Blood Type O POSITIVE Gel Antibody Screen Negative Med Orders - Current: Current Medications Acetaminophen (Tylenol Bulk Bottle) 0 mg PO Q4H PRN PRN Reason: Pain Last Admin: 07/29/19 19:09 Dose: 1 bottle Amoxicillin (Amoxil) 500 mg PO Q8H YOLETTE Stop: 08/09/19 09:01 Last Admin: 07/30/19 09:44 Dose: 500 mg Benzocaine (Omoi-A-Yfodagv 20% [place]) 0 gm TOP Q4H PRN PRN Reason: Pain Emollient Ointment (Lansinoh Hpa) 0 gm TOP ASDIRECTED PRN PRN Reason: Pain Ferrous Sulfate (Ferrous Sulfate) 325 mg PO BIDMEALS YOLETTE Ibuprofen (Motrin Bulk Bottle) 600 mg PO Q6H PRN PRN Reason: Pain Last Admin: 07/29/19 19:09 Dose: 1 bottle Sodium Chloride (Saline Flush) 10 ml FLUSH ASDIRECTED PRN PRN Reason: Keep Vein Open Last Admin: 07/29/19 21:56 Dose: 10 ml Witch Zabrina (Tucks) 1 pad TOP ASDIRECTED PRN PRN Reason: Pain Discontinued Medications Benzocaine (Bfdo-D-Emccoqf 20% [place]) 0 gm TOP ONETIME ONE Stop: 07/29/19 18:02 Last Admin: 07/30/19 05:21 Dose: Not Given Cefoxitin Sodium 2 gm/ Sodium (Chloride) 50 mls @ 100 mls/hr IV ONETIME ONE Stop: 07/29/19 18:07 Last Admin: 07/29/19 18:33 Dose: 100 mls/hr Oxytocin/Sodium Chloride (Pitocin In Ns 20 Units/1,000 Ml) 20 unit in 1,000 mls @ 2,997 mls/hr IV ONETIME ONE; Protocol Stop: 07/29/19 18:26 Last Admin: 07/29/19 19:14 Dose: 999 munits/min, 999 mls/hr Witch Zabrina (Tucks) 1 pad TOP ONETIME ONE Stop: 07/29/19 18:02 Last Admin: 07/30/19 05:22 Dose: Not Given - Infant Interaction Disposition, : [place] at Bedside Interaction: Holding Infant Feeding: Breastfed Infant; Nursed Well - Recovery Exam Fundal Tone: Firm Fundal Level: 2 Fingerbreadths Below Umbilicus Fundal Placement: Midline Lochia Amount: Small Lochia Color: Rubra/Red Perineum Description: Intact, Minimal Bruising/Swelling Episiotomy/Laceration: None Bladder Status: Voiding - Problem List & Annotations (1) Vaginal delivery SNOMED Code(s): 488817232 Code(s): O80 - ENCOUNTER FOR FULL-TERM UNCOMPLICATED DELIVERY Status: Acute Current Visit: Yes (2) Precipitous delivery SNOMED Code(s): 543942500, 429258521 Code(s): O62.3 - PRECIPITATE LABOR Status: Acute Current Visit: Yes (3) Encounter for care after unplanned out of hospital delivery SNOMED Code(s): 814599576, 136418586, 481932517 Code(s): Z39.2 - ENCOUNTER FOR ROUTINE FOLLOW-UP Status: Acute Current Visit: Yes (4) Elevated WBC count SNOMED Code(s): 801036390, 816212437 Code(s): D72.829 - ELEVATED WHITE BLOOD CELL COUNT, UNSPECIFIED Status: Acute Current Visit: Yes (5) No care in current SNOMED Code(s): 460843057 Code(s): O09.30 - SUPRVSN OF PREG W INSUFFICIENT ANTENAT CARE, UNSP TRIMESTER Status: Acute Current Visit: Yes (6) Social problem in school SNOMED Code(s): 236773920 Code(s): Z65.8 - OTH PROBLEMS RELATED TO PSYCHOSOCIAL CIRCUMSTANCES Status : Acute Current Visit: Yes (7) Anemia SNOMED Code(s): 023466471 Code(s): D64.9 - ANEMIA, UNSPECIFIED Status: Acute Current Visit: Yes Qualifiers: Anemia type: unspecified type Qualified Code(s): D64.9 - Anemia, unspecified (8) Prolonged rupture of membranes, greater than 24 hours, delivered SNOMED Code(s): 78297408, 512577304 Code(s): O42.10 - JONA ROM, ONSET LABOR > 24 HR FOL RUPT, UNSP WEEKS OF GEST Status: Acute Current Visit: Yes (9) UTI (urinary tract infection) during SNOMED Code(s): 405576652 Code(s): O23.40 - UNSP INFECTION OF URINARY TRACT IN , UNSP TRIMESTER Status: Acute Current Visit: Yes - Problem List Review Problem List Initiated/Reviewed/Updated: Yes - My Orders Last 24 Hours: My Active Orders 07/29/19 16:48 Patient Status [ADT] Routine Notify Provider Vital Signs [RC] PRN Resuscitation Status Routine 07/29/19 17:38 Sodium Chloride 0.9% [Saline Flush] 10 ml FLUSH ASDIRECTED PRN 07/29/19 18:00 HEPATITIS B SURF AB QUANT Routine RUBELLA ANTIBODIES, IGG Routine 07/29/19 18:01 Patient Status [ADT] Routine Vital Signs [RC] PFP Acetaminophen [Tylenol Bulk Bottle] See Dose Instructions PO Q4H PRN Benzocaine [Epze-J-Abdjvgl 20% [place]] 0 gm TOP Q4H PRN Ibuprofen [Motrin Bulk Bottle] 600 mg PO Q6H PRN Lanolin [Lansinoh HPA] 0 gm TOP ASDIRECTED PRN Witch Zabrina [Tucks] 1 pad TOP ASDIRECTED PRN Assess Lochia [WOMSER] Per Unit Routine Assess Uterine Involution [WOMSER] Per Unit Routine DVT/VTE Prophylaxis Reflex [OM.PC] Routine 07/29/19 18:02 VTE/DVT Education [RC] Click to Edit Ice Therapy [OM.PC] Per Unit Routine Perineal Care [OM.PC] Per Unit Routine Sitz Bath [OM.PC] Per Unit Routine 07/29/19 22:29 AMPHETAMINE SCREEN RFLX Routine METHAMPHETAMINE D/L ISOMERS Routine 07/30/19 05:00 RPR QN+TP ABS Routine 07/30/19 09:00 Amoxicillin [Amoxil] 500 mg PO Q8H 07/30/19 17:00 Ferrous Sulfate 325 mg PO BIDMEALS - Assessment Assessment:: 07/29/2019 28 yo G2 now P2 delivered precipitously at home in bathroom with no care Approximate gestation of 39 2/7 based on patient stated LMP Prolonged or unknown rupture of membranes Social problems Labs-unknown, CBC-wbc-22.3, hgb-10.7 07/30/2019 Normal Female Day One UDS positive for amphetamines and methamphetamines, patient denies drug use No care well Fundus firm and bleeding decreasing Hgb-7.5 today, WBC-13.8 today Patient currently being cooperative, social service to come later today. 07/30/2019 [facility] worker here for assessment After they left [facility] and placed baby on a police hold - Plan Plan:: 07/29/2019 28 yo female G2 now P2 delivered at home see labor delivery note- Plan- Routine cares Encourage and support Will draw all labs IV antibiotics for suspected prolonged SROM and elevated WBC CBC again tomorrow am Pitocin IV per protocol for bleeding 07/30/2019 Continue routine cares Continue to Encourage and support IV antibiotics for suspected prolonged SROM and elevated WBC, leave SL in for now CBC tomorrow again to check hgb Will initiate Iron today Will initiate oral antibiotics for suspected UTI Social service to see today
[2019-07-30] MEDS: Ferrous Sulfate 325 MG Tab PO SCH (17:57)
[2019-07-30] MEDS: Docusate Sodium 100 MG Cap PO PRN (21:16)
[2019-07-31] MEDS: Amoxicillin 500 MG Cap PO SCH ×2 (01:45→09:02)
--- NOTE | 2019-07-31 07:27 | PCM.PNPP ---
- General Info Date of Service: 07/31/19 Functional Status: Reports: Pain Controlled - Review of Systems General: Reports: No Symptoms HEENT: Reports: No Symptoms Pulmonary: Reports: No Symptoms Cardiovascular: Reports: No Symptoms Gastrointestinal: Reports: No Symptoms Genitourinary: Reports: No Symptoms Musculoskeletal: Reports: No Symptoms Skin: Reports: No Symptoms Neurological: Reports: No Symptoms Psychiatric: Reports: No Symptoms - General Info Date of Service: 07/31/19 - Patient Data Vital Signs - Most Recent: Last Vital Signs Temp 35.9 C 07/31/19 07:20 Pulse 86 07/31/19 07:20 Resp 18 07/31/19 07:20 BP 111/65 07/31/19 07:20 Pulse Ox 97 07/31/19 07:20 Weight - Most Recent: 58.967 kg I&O - Last 24 Hours: Intake & Output 07/30/19 07/31/19 07/31/19 22:59 06:59 14:59 Intake Total 1000 Balance 1000 Lab Results - Last 24 Hours: Laboratory Results - last 24 hr 07/29/19 07/31/19 Range/Units 18:00 06:06 WBC 11.7 H (4.5-11.0) K/uL RBC 2.36 L (3.30-5.50) M/uL Hgb 6.9 L* (12.0-15.0) g/dL Hct 21.1 L (36.0-48.0) % MCV 89 (80-98) fL MCH 29 (27-31) pg MCHC 33 (32-36) % Plt Count 217 (150-400) K/uL Neut % (Auto) 67 H (36-66) % Lymph % (Auto) 25 (24-44) % [place] % (Auto) 6 (2-6) % Eos % (Auto) 2 (2-4) % Baso % (Auto) 0 (0-1) % Hep Bs Antibody, Quant <3.1 L (Immunity>9.9) mIU/mL Med Orders - Current: Current Medications Acetaminophen (Tylenol Bulk Bottle) 0 mg PO Q4H PRN PRN Reason: Pain Last Admin: 07/29/19 19:09 Dose: 1 bottle Amoxicillin (Amoxil) 500 mg PO Q8H YOLETTE Stop: 08/09/19 09:01 Last Admin: 07/31/19 01:45 Dose: 500 mg Benzocaine (Agcs-D-Ewvfbuj 20% [place]) 0 gm TOP Q4H PRN PRN Reason: Pain Docusate Sodium (Colace) 100 mg PO BID PRN PRN Reason: Constipation Last Admin: 07/30/19 21:16 Dose: 100 mg Emollient Ointment (Lansinoh Hpa) 0 gm TOP ASDIRECTED PRN PRN Reason: Pain Last Admin: 07/30/19 21:16 Dose: 1 applic Ferrous Sulfate (Ferrous Sulfate) 325 mg PO BIDMEALS YOLETTE Last Admin: 07/30/19 17:57 Dose: 325 mg Ibuprofen (Motrin Bulk Bottle) 600 mg PO Q6H PRN PRN Reason: Pain Last Admin: 07/29/19 19:09 Dose: 1 bottle Sodium Chloride (Saline Flush) 10 ml FLUSH ASDIRECTED PRN PRN Reason: Keep Vein Open Last Admin: 07/29/19 21:56 Dose: 10 ml Witch Zabrina (Tucks) 1 pad TOP ASDIRECTED PRN PRN Reason: Pain Discontinued Medications Benzocaine (Rjke-E-Wqvmdml 20% [place]) 0 gm TOP ONETIME ONE Stop: 07/29/19 18:02 Last Admin: 07/30/19 05:21 Dose: Not Given Cefoxitin Sodium 2 gm/ Sodium (Chloride) 50 mls @ 100 mls/hr IV ONETIME ONE Stop: 07/29/19 18:07 Last Admin: 07/29/19 18:33 Dose: 100 mls/hr Oxytocin/Sodium Chloride (Pitocin In Ns 20 Units/1,000 Ml) 20 unit in 1,000 mls @ 2,997 mls/hr IV ONETIME ONE; Protocol Stop: 07/29/19 18:26 Last Admin: 07/29/19 19:14 Dose: 999 munits/min, 999 mls/hr Witch Zabrina (Tucks) 1 pad TOP ONETIME ONE Stop: 07/29/19 18:02 Last Admin: 07/30/19 05:22 Dose: Not Given - Interaction Infant Disposition, : [place] at Bedside Interaction: Holding Infant Feeding: Breastfed ; Nursed Well - Recovery Exam Fundal Tone: Firm Fundal Level: 3 Fingerbreadths Below Umbilicus Fundal Placement: Midline Lochia Amount: Small Lochia Color: Rubra/Red Perineum Description: Intact, Minimal Bruising/Swelling Episiotomy/Laceration: None Bladder Status: Voiding - Exam General: Alert, Oriented, Cooperative HEENT: Pupils Equal, Pupils Reactive, Mucous Membr. Moist/[place] Neck: Supple Lungs: Clear to Auscultation, Normal Respiratory Effort Cardiovascular: Regular Rate, Regular Rhythm GI/Abdominal Exam: Normal Bowel Sounds, Soft, Non-Tender, No Organomegaly, No Distention, No Abnormal Bruit, No Mass, Pelvis Stable Extremities: Normal Inspection, Normal Range of Motion, Non-Tender, No Pedal Edema, Normal Capillary Refill Skin: Warm, Dry, Intact Wound/Incisions: Healing Well Neurological: No New Focal Deficit Psy/Mental Status: Alert, Normal Affect, Normal Mood - Problem List & Annotations (1) Vaginal delivery SNOMED Code(s): 220552295 Code(s): O80 - ENCOUNTER FOR FULL-TERM UNCOMPLICATED DELIVERY Status: Acute Current Visit: Yes (2) Precipitous delivery SNOMED Code(s): 033948187, 633650648 Code(s): O62.3 - PRECIPITATE LABOR Status: Acute Current Visit: Yes (3) Encounter for care after unplanned out of hospital delivery SNOMED Code(s): 438939657, 496868183, 377623812 Code(s): Z39.2 - ENCOUNTER FOR ROUTINE FOLLOW-UP Status: Acute Current Visit: Yes (4) Elevated WBC count SNOMED Code(s): 143949659, 362742460 Code(s): D72.829 - ELEVATED WHITE BLOOD CELL COUNT, UNSPECIFIED Status: Acute Current Visit: Yes (5) No care in current SNOMED Code(s): 860404257 Code(s): O09.30 - SUPRVSN OF PREG W INSUFFICIENT ANTENAT CARE, UNSP TRIMESTER Status: Acute Current Visit: Yes (6) Social problem in school SNOMED Code(s): 993303599 Code(s): Z65.8 - OTH PROBLEMS RELATED TO PSYCHOSOCIAL CIRCUMSTANCES Status : Acute Current Visit: Yes (7) Anemia SNOMED Code(s): 201406327 Code(s): D64.9 - ANEMIA, UNSPECIFIED Status: Acute Current Visit: Yes Qualifiers: Anemia type: unspecified type Qualified Code(s): D64.9 - Anemia, unspecified (8) Prolonged rupture of membranes, greater than 24 hours, delivered SNOMED Code(s): 72867708, 903731565 Code(s): O42.10 - JONA ROM, ONSET LABOR > 24 HR FOL RUPT, UNSP WEEKS OF GEST Status: Acute Current Visit: Yes (9) UTI (urinary tract infection) during SNOMED Code(s): 871119932 Code(s): O23.40 - UNSP INFECTION OF URINARY TRACT IN , UNSP TRIMESTER Status: Acute Current Visit: Yes - Problem List Review Problem List Initiated/Reviewed/Updated: Yes - My Orders Last 24 Hours: My Active Orders 07/30/19 09:00 Amoxicillin [Amoxil] 500 mg PO Q8H 07/30/19 17:00 Ferrous Sulfate 325 mg PO BIDMEALS 07/30/19 20:14 Docusate Sodium [Colace] 100 mg PO BID PRN - Assessment Assessment:: 07/29/2019 28 yo G2 now P2 delivered precipitously at home in bathroom with no care Approximate gestation of 39 2/7 based on patient stated LMP Prolonged or unknown rupture of membranes Social problems Labs-unknown, CBC-wbc-22.3, hgb-10.7 07/30/2019 Normal Female Day One UDS positive for amphetamines and methamphetamines, patient denies drug use No care well Fundus firm and bleeding decreasing Hgb-7.5 today, WBC-13.8 today Patient currently being cooperative, social service to come later today. 07/30/2019 [facility] worker here for assessment After they left [facility] came and placed baby on a police hold 07/31/2019 Normal Female Day Two UDS positive for amphetamines and methamphetamines, patient denies drug use No care well Fundus firm and bleeding decreasing Hgb-6.9 today, not symptomatic Patient currently being cooperative, baby placed on a police hold by [facility] yesterday. - Plan Plan:: 07/29/2019 28 yo female G2 now P2 delivered at home see labor delivery note- Plan- Routine cares Encourage and support Will draw all labs IV antibiotics for suspected prolonged SROM and elevated WBC CBC again tomorrow am Pitocin IV per protocol for bleeding 07/30/2019 Continue routine cares Continue to Encourage and support IV antibiotics for suspected prolonged SROM and elevated WBC, leave SL in for now CBC tomorrow again to check hgb Will initiate Iron today Will initiate oral antibiotics for suspected UTI Social service to see today 07/31/2019 Continue routine cares Continue to Encourage and support Continue oral antibiotics Encourage Iron rich diet and continue oral iron supplement Discharge home at 48hrs today To have follow up with Jess in one week in clinic
[2019-07-31] MEDS: Docusate Sodium 100 MG Cap PO PRN (09:01)
[2019-07-31] MEDS: Ferrous Sulfate 325 MG Tab PO SCH (09:02)
[2019-07-31 13:41] VITALS: BP 120/83; PULSE 119
[2019-08-03 19:08] LABS: TREPONEMA PALLIDUM ANTIBODIES Negative (Negative)
== END 2019-07-31 15:55 | disposition home or self-care (01) | DRG 776 ==
LOC: JP.OB 16:34 → JP.MS 21:37
PROVIDERS: ADMIT Advanced Practice Midwife; ATTEND Advanced Practice Midwife
DX: O99.03 Anemia complicating the puerperium (principal); O72.1 Other immediate postpartum hemorrhage; O86.20 Urinary tract infection following delivery, unspecified; O62.3 Precipitate labor; Z65.8 Other specified problems related to psychosocial circumstances; O99.335 Smoking (tobacco) complicating the puerperium; F17.210 Nicotine dependence, cigarettes, uncomplicated
CPT/HCPCS: 36415; 80299; 80305-QW; 80307; 81001; 85025; 86317; 86593; 86762; 86780; 86850; 86900; 86901; 87449; 88307; A9270-GY; J0694; J2590; J7050